=== PATIENT | male | born 1960 | race Caucasian/White ===

== ENCOUNTER 2017-10-11 06:30 | Day surgery (SDC) | payer OTHER ==
[~2017-10-11] VITALS: Ht 182.9 cm; Wt 111.4 kg
[~2017-10-11 06:30] MED LIST: ASPI81CH; ATOR40TA; METO25ER
== END 2017-10-11 13:30 | disposition home or self-care (01) ==
LOC: MHTC 06:30
PROC: B211YZZ Fluoroscopy of Multiple Coronary Arteries using Other Contrast (ICD-10-PCS; principal; 2017-10-11)
PROC: 4A023N7 Measurement of Cardiac Sampling and Pressure, Left Heart, Percutaneous Approach (ICD-10-PCS; principal; 2017-10-11)
DX: I34.0 Nonrheumatic mitral (valve) insufficiency (principal); I51.9 Heart disease, unspecified; R06.02 Shortness of breath; R93.1 Abnormal findings on diagnostic imaging of heart and coronary circulation; R94.31 Abnormal electrocardiogram [ECG] [EKG]; R53.83 Other fatigue; E78.5 Hyperlipidemia, unspecified
CPT/HCPCS: 93458; 99152; 99153; C1769; C1894; J0690; J1644; J2250; J3010; J7030; Q9967

== ENCOUNTER 2017-11-29 06:10 | Day surgery (SDC) | payer OTHER | END 2017-11-29 22:44 | disposition home or self-care (01) | LOC: MHTC 06:10 | PROC: B246ZZ4 Ultrasonography of Right and Left Heart, Transesophageal (ICD-10-PCS; principal; 2017-11-29) | DX: I34.0 Nonrheumatic mitral (valve) insufficiency (principal); I42.9 Cardiomyopathy, unspecified; I44.1 Atrioventricular block, second degree; R00.1 Bradycardia, unspecified; E78.5 Hyperlipidemia, unspecified | CPT/HCPCS: 93005; 93010; 93312; 93325; J2250; J7030 ==

== ENCOUNTER 2017-12-09 06:18 | Day surgery (SDC) | payer OTHER ==
[~2017-12-09] VITALS: Ht 185.4 cm; Wt 102.0 kg
[~2017-12-09 06:18] MED LIST changes: -ATOR40TA; +ATOR40TA PO; +TORSE20 PO
== END 2017-12-09 13:40 | disposition home or self-care (01) ==
LOC: MHTC 06:18
PROC: 02H63JZ Insertion of Pacemaker Lead into Right Atrium, Percutaneous Approach (ICD-10-PCS; principal; 2017-12-09)
PROC: 02HK3JZ Insertion of Pacemaker Lead into Right Ventricle, Percutaneous Approach (ICD-10-PCS; principal; 2017-12-09)
PROC: 0JH606Z Insertion of Pacemaker, Dual Chamber into Chest Subcutaneous Tissue and Fascia, Open Approach (ICD-10-PCS; principal; 2017-12-09)
DX: I44.1 Atrioventricular block, second degree (principal); R00.1 Bradycardia, unspecified; E78.5 Hyperlipidemia, unspecified; E66.01 Morbid (severe) obesity due to excess calories; I42.0 Dilated cardiomyopathy; I50.20 Unspecified systolic (congestive) heart failure; I34.0 Nonrheumatic mitral (valve) insufficiency; Z79.82 Long term (current) use of aspirin; Z79.899 Other long term (current) drug therapy; Z68.32 Body mass index [BMI] 32.0-32.9, adult
CPT/HCPCS: 33208; 71046; 93005; 93010; 99152; 99153; C1785; C1898; J0690; J1644; J2250; J3010; J7030; J7040

== ENCOUNTER 2018-12-05 11:11 | Inpatient (IN) | payer OTHER ==
[~2018-12-05] VITALS: Ht 188 cm; Wt 109.2 kg
[2018-12-05] MEDS ORDERED: Toprol Xl25 MG PO (11:46)
[2018-12-05] MEDS ORDERED: LOSA25 PO (11:46)
[2018-12-05] MEDS ORDERED: BUME2 PO ×2 (11:46→11:47)
[2018-12-05] MEDS ORDERED: LO-DOSE ASPIRIN81 MG PO (11:47)
[2018-12-05 12:06] LABS: BASOPHILS ABSOLUTE AUTO 0.05 K/mm3 (0.00-0.23); BASOPHILS PERCENT AUTO 0 % (0-2); EOSINOPHILS ABSOLUTE AUTO 0.02 K/mm3 (0.00-0.68); EOSINOPHILS PERCENT AUTO 0 % (0-6); Hematocrit 53.2 % (37.0-53.0); Hemoglobin 17.5 g/dL (13.5-17.5); IMMATURE GRAN ABSOLUTE AUTO 0.15 K/mm3 (0.00-0.10); IMMATURE GRAN PERCENT AUTO 1 % (0-1); LYMPHOCYTES ABSOLUTE AUTO 0.68 K/mm3 (0.84-5.20); LYMPHOCYTES PERCENT AUTO 3 % (21-46); MONOCYTES ABSOLUTE AUTO 1.58 K/mm3 (0.16-1.47); MONOCYTES PERCENT AUTO 8 % (4-13); Mean Corpuscular HGB 32.2 pg (26.0-34.0); Mean Corpuscular HGB Conc 32.9 g/dL (31.5-36.5); Mean Corpuscular Volume 98 fL (80-100); Mean Platelet Volume 10.1 fL (9.1-12.4); NEUTROPHILS ABSOLUTE AUTO 18.64 K/mm3 (1.96-9.15); NEUTROPHILS PERCENT AUTO 88 % (41-73); Platelet Count 208 K/mm3 (150-400); RDW Coefficient Variation 15.1 % (11.7-14.2); RDW Standard Deviation 53.7 fL (35.1-46.3); Red Blood Cell Count 5.44 M/mm3 (4.30-5.90); White Blood Cell Count 21.12 K/mm3 (4.00-11.30)
[2018-12-05 12:27] LABS: Albumin, Blood 3.9 g/dL (3.4-5.0); Albumin/Globulin Ratio 1.3 (0.8-1.8); Bilirubin, Total 4.7 mg/dL (0.1-1.0); Bun/Creatinine Ratio 20.6 (12.0-20.0); Calcium, Blood 9.1 mg/dL (8.5-10.1); Creatinine, Blood 1.55 mg/dL (0.60-1.20); Globulin, Blood 2.9 g/dL (2.2-4.0); Potassium, Blood 3.6 mmol/L (3.5-5.5); Total Protein, Blood 6.8 g/dL (6.4-8.2); Troponin I 0.037 ng/mL (0.000-0.040)
[2018-12-05] MEDS ORDERED: Potassium99 MG PO (13:57)
--- NOTE | 2018-12-05 16:32 | NUR ---
Echocardiogram completed.
--- NOTE | 2018-12-05 18:23 | NUR ---
PATIENT ADMITT THE PATIENT WAS ADMITTED TO ROOM #335 ON THE MEDICAL FLOOR FROM THE E/R, FOR HEART FAILURE. THE PATIENT WAS BROUGHT TO THE MEDICAL FLOOR VIA WHEELCHAIR AT 1722 THIS AFTERNOON. THE PATIENT'S SON WAS WITH THE PATIENT. THE PATIENT'S ADMISSION WAS COMPLETED AT THAT TIME. THE PATIENT WAS PLACED ON TELE. THE PATIENT IS RESTING AT THIS TIME, WILL CONTINUE TO MONITOR.
[2018-12-06 05:04] LABS: BASOPHILS ABSOLUTE AUTO 0.08 K/mm3 (0.00-0.23); BASOPHILS PERCENT AUTO 0 % (0-2); EOSINOPHILS ABSOLUTE AUTO 0.07 K/mm3 (0.00-0.68); EOSINOPHILS PERCENT AUTO 0 % (0-6); Hematocrit 52.3 % (37.0-53.0); Hemoglobin 17.2 g/dL (13.5-17.5); IMMATURE GRAN ABSOLUTE AUTO 0.15 K/mm3 (0.00-0.10); IMMATURE GRAN PERCENT AUTO 1 % (0-1); LYMPHOCYTES ABSOLUTE AUTO 1.98 K/mm3 (0.84-5.20); LYMPHOCYTES PERCENT AUTO 10 % (21-46); MONOCYTES ABSOLUTE AUTO 1.79 K/mm3 (0.16-1.47); MONOCYTES PERCENT AUTO 9 % (4-13); Mean Corpuscular HGB 32.1 pg (26.0-34.0); Mean Corpuscular HGB Conc 32.9 g/dL (31.5-36.5); Mean Corpuscular Volume 98 fL (80-100); Mean Platelet Volume 10.1 fL (9.1-12.4); NEUTROPHILS ABSOLUTE AUTO 16.16 K/mm3 (1.96-9.15); NEUTROPHILS PERCENT AUTO 80 % (41-73); Platelet Count 201 K/mm3 (150-400); RDW Coefficient Variation 15.2 % (11.7-14.2); RDW Standard Deviation 54.3 fL (35.1-46.3); Red Blood Cell Count 5.35 M/mm3 (4.30-5.90); White Blood Cell Count 20.23 K/mm3 (4.00-11.30)
[2018-12-06 05:28] LABS: Albumin, Blood 3.8 g/dL (3.4-5.0); Albumin/Globulin Ratio 1.3 (0.8-1.8); Bilirubin, Total 4.8 mg/dL (0.1-1.0); Bun/Creatinine Ratio 18.6 (12.0-20.0); Calcium, Blood 8.9 mg/dL (8.5-10.1); Creatinine, Blood 1.61 mg/dL (0.60-1.20); Globulin, Blood 2.9 g/dL (2.2-4.0); Magnesium, Blood 2.2 mg/dL (1.6-2.4); Potassium, Blood 3.9 mmol/L (3.5-5.5); Total Protein, Blood 6.7 g/dL (6.4-8.2)
--- NOTE | 2018-12-06 07:47 | NUR ---
12/06/18 0645 AWAKE AND SLEPT ON AND OFF. VITALS STABLE. COUGH SUPPRESSANT AND PAIN PILL HELPED WITH SYMPTOMS. DENIES ANY SOB AT THIS TIME.
--- NOTE | 2018-12-06 18:44 | NUR ---
SHIFT SUMMARY PATIENT A&O X4, INDEPENDENT IN THE ROOM. DENIES ANY PAIN OR NAUSEA. C/O SOB W/ EXTERTION T/O SHIFT. TOWARD END OF SHIFT PATIENT BEGAN HAVING AN INCREASE IN COUGH AND SOB AT REST. RN MEDICATED FOR COUGH PER E AUG, VITAL SIGNS REMAINED STABLE, OXYGEN @ 96% ON RA. SOB SEEMED TO IMPROVE SOME BUT PATIENT STATED HE REMAINED SOB FOR SOME TIME AFTER BEING UP TO USE THE BATHROOM. DR. NICOLAS AWARE. SIGNAL REPAIRER CONSULTED THIS SHIFT. NO OTHER ACUTE CHANGES THIS SHIFT. RN WILL CONTINUE TO MONITOR.
[2018-12-07 05:41] LABS: BASOPHILS ABSOLUTE AUTO 0.07 K/mm3 (0.00-0.23); BASOPHILS PERCENT AUTO 0 % (0-2); EOSINOPHILS ABSOLUTE AUTO 0.11 K/mm3 (0.00-0.68); EOSINOPHILS PERCENT AUTO 1 % (0-6); Hematocrit 51.3 % (37.0-53.0); Hemoglobin 17.1 g/dL (13.5-17.5); IMMATURE GRAN PERCENT AUTO 1 % (0-1); LYMPHOCYTES ABSOLUTE AUTO 2.44 K/mm3 (0.84-5.20); LYMPHOCYTES PERCENT AUTO 14 % (21-46); MONOCYTES ABSOLUTE AUTO 1.61 K/mm3 (0.16-1.47); MONOCYTES PERCENT AUTO 9 % (4-13); Mean Corpuscular HGB Conc 33.3 g/dL (31.5-36.5); Mean Corpuscular Volume 96 fL (80-100); Mean Platelet Volume 10.2 fL (9.1-12.4); NEUTROPHILS ABSOLUTE AUTO 12.99 K/mm3 (1.96-9.15); NEUTROPHILS PERCENT AUTO 75 % (41-73); Platelet Count 178 K/mm3 (150-400); RDW Coefficient Variation 15.3 % (11.7-14.2); RDW Standard Deviation 52.2 fL (35.1-46.3); Red Blood Cell Count 5.35 M/mm3 (4.30-5.90); White Blood Cell Count 17.32 K/mm3 (4.00-11.30)
[2018-12-07 06:06] LABS: Magnesium, Blood 2.4 mg/dL (1.6-2.4)
[2018-12-07 06:07] LABS: Albumin, Blood 3.5 g/dL (3.4-5.0); Albumin/Globulin Ratio 1.2 (0.8-1.8); Bilirubin, Total 5.1 mg/dL (0.1-1.0); Calcium, Blood 8.6 mg/dL (8.5-10.1); Creatinine, Blood 1.68 mg/dL (0.60-1.20); Globulin, Blood 2.8 g/dL (2.2-4.0); Potassium, Blood 3.6 mmol/L (3.5-5.5); Total Protein, Blood 6.3 g/dL (6.4-8.2)
--- NOTE | 2018-12-07 06:23 | NUR ---
SHIFT SUMMARY NO ACUTE EVENTS OVERNIGHT. PATIENT SLEPT THROUGHOUT THE NIGHT WITH NO S/S OF DISTRESS.
--- NOTE | 2018-12-07 13:48 | NUR ---
NOTIFIED BY ASSEMBLER FOR PULLER OVER MACHINE LORI THAT PCU SYSTEMS NAVIGATOR HAD NOTIFIED HER OF A CHANGE IN PATIENT TELE. THIS RN TO PATIENT ROOM, VITAL SIGNS STABLE. PATIENT ASYMPTOMATIC. DENIES ANY CHEST PAIN OR PRESSURE. RN PLACED CALL TO SYSTEMS NAVIGATOR, PATIENT ST LOW 100S W/ BBB AND PVCS. RN NOTIFIED DR BUSTILLO. WILL CONTINUE TO MONITOR.
--- NOTE | 2018-12-07 18:30 | NUR ---
SHIFT SUMMARY PATIENT A&O X4, INDEPENDENT IN THE ROOM. DENIES ANY PAIN THIS SHIFT. C/O SOB WHEN UP TO THE BATHROOM. TELE NSR W/ BBB @ 95 THIS AM PER ASIAN STUDIES PROFESSOR. TELE REMOVED FOR PATIENT TO TAKE SHOWER THIS SHIFT. SHORTLY AFTER PLACING THE PATIENT BACK ON TELE PCU DEVICE TEST ENGINEER CALLED TO SAY THAT PATIENT HAD A CHANGE IN HIS STRIP, PER ASIAN STUDIES PROFESSOR HE HAD A WIDENING BUNDLE BRANCH BLOCK. TECH WAS UNSURE IF THIS WAS DUE TO PLACEMENT OF TELE PATCHES OR NOT. RN ASSESSED PATIENT WHO DENIED ANY SOB OR CHEST PAIN, PATIENT WAS SITTING UP IN BED, VSS. RN CHANGED TELE PATCHES. CALL WAS PLACED TO DR. BUSTILLO. EKG DONE, REVIEWED BY DR. BUSTILLO. ABD US DONE THIS SHIFT. NO OTHER ACUTE CHANGES. RN WILL CONTINUE TO MONITOR.
[2018-12-08 04:06] LABS: HBSAG SCREEN Negative (Negative); HEP B CORE AB, TOT Negative (Negative); HEP C VIRUS AB <0.1 (0.0-0.9)
--- NOTE | 2018-12-08 05:11 | NUR ---
58 year old MAle with CHF and hx of pacemaker x 1 year says he isn't sure why pacemaker was placed but in followup with cardiology he may have AICD placed. He verbalized he has been unable to return to full duty work after cardiac issues began. 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 has been denied SSD but has appealed. He reports his ejection fx is down to 20 % from 35%. He is compliant with 1200 ml fluid restriction. On room air, he becomes sob with exertion. Cough med for dry hacking cough and restoril for insommia helful to get restful night sleep. NSR at 80 no pacer spikes seen.
[2018-12-08 05:56] LABS: Hematocrit 50.6 % (37.0-53.0); Hemoglobin 16.8 g/dL (13.5-17.5); Mean Corpuscular HGB 31.9 pg (26.0-34.0); Mean Corpuscular HGB Conc 33.2 g/dL (31.5-36.5); Mean Corpuscular Volume 96 fL (80-100); Mean Platelet Volume 10.3 fL (9.1-12.4); Platelet Count 163 K/mm3 (150-400); RDW Coefficient Variation 15.3 % (11.7-14.2); RDW Standard Deviation 52.9 fL (35.1-46.3); Red Blood Cell Count 5.26 M/mm3 (4.30-5.90); White Blood Cell Count 17.62 K/mm3 (4.00-11.30)
[2018-12-08 06:14] LABS: Magnesium, Blood 2.3 mg/dL (1.6-2.4)
[2018-12-08 06:15] LABS: Bun/Creatinine Ratio 23.2 (12.0-20.0); Calcium, Blood 9.1 mg/dL (8.5-10.1); Creatinine, Blood 1.94 mg/dL (0.60-1.20); Potassium, Blood 3.4 mmol/L (3.5-5.5)
[2018-12-08 07:49] LABS: Albumin, Blood 3.5 g/dL (3.4-5.0); Albumin/Globulin Ratio 1.3 (0.8-1.8); Bilirubin, Total 6.2 mg/dL (0.1-1.0); Bun/Creatinine Ratio 23.4 (12.0-20.0); Calcium, Blood 8.8 mg/dL (8.5-10.1); Creatinine, Blood 1.97 mg/dL (0.60-1.20); Globulin, Blood 2.7 g/dL (2.2-4.0); Potassium, Blood 3.5 mmol/L (3.5-5.5); Total Protein, Blood 6.2 g/dL (6.4-8.2)
--- NOTE | 2018-12-08 17:38 | NUR ---
SHIFT SUMMARY THE PATIENT PRESENTED THIS SHIFT WITH CLEAR, BUT DIMINISHED LUNG SOUNDDS, A&O X4 AND WITH VITALS THAT WERE WNL. THE PATIEN HAD TWO CRITICAL LAB VALUES CALLED BACK BHARAT SHIFT, BOTH WERE LACTIC ACID, AT 1025, VALUE OF 3.0 AND AT 1350 A VALUE OF 2.6. THE PATIENT'S DOCTOR WAS CALLED FOR BOTH RESULTS. THE PATIENT HAS BEEN INDEPENDENT IN HIS ROOM, WITH FAMILY AND FREINDS VISITING. THE PATIENT IS RESTING AT THIS TIME, WILL CONTINUE TO MONITOR.
--- NOTE | 2018-12-09 04:56 | NUR ---
PT CONTINUES ON TELE MONITORING WITH NSR AND 1ST DEGREE AND BBB. HE DECLINES RESPTORIL AND APPERS TO BE RESTING ANYWAY ON ROUNDS. CONTINUES ON 1200 ML FLUID RESTRICTION, COMPLIANT. HAD WORSENING LAB VAlues with elevated biliruben lactic acid alt ast. Abd US negative. poor appetite zero dinner taken . did take replacement shake with encouragement.
[2018-12-09 05:47] LABS: Hematocrit 52.9 % (37.0-53.0); Hemoglobin 17.5 g/dL (13.5-17.5); Mean Corpuscular HGB Conc 33.1 g/dL (31.5-36.5); Mean Corpuscular Volume 97 fL (80-100); Mean Platelet Volume 10.7 fL (9.1-12.4); Platelet Count 149 K/mm3 (150-400); RDW Coefficient Variation 15.2 % (11.7-14.2); RDW Standard Deviation 52.9 fL (35.1-46.3); Red Blood Cell Count 5.47 M/mm3 (4.30-5.90); White Blood Cell Count 11.04 K/mm3 (4.00-11.30)
[2018-12-09 06:14] LABS: Albumin, Blood 3.6 g/dL (3.4-5.0); Albumin/Globulin Ratio 1.6 (0.8-1.8); Bilirubin, Total 4.4 mg/dL (0.1-1.0); Bun/Creatinine Ratio 32.6 (12.0-20.0); Calcium, Blood 8.8 mg/dL (8.5-10.1); Creatinine, Blood 1.35 mg/dL (0.60-1.20); Globulin, Blood 2.3 g/dL (2.2-4.0); Total Protein, Blood 5.9 g/dL (6.4-8.2)
--- NOTE | 2018-12-09 09:38 | NUR ---
WRONG MEDICATION THE PATIENT'S NAME WAS USED TO PULL CHEM STRIPS FOR B/G AND THE SOLUMEDROL MEDICATION AREA MUST OF BEEN TOUCHED. NO SOLUMEDROL WAS TAKEN OUT OF THE PIXIS. CHARGE NURSE SUMMER WAS THERE DURING THE TIME.
[2018-12-09 11:51] LABS: Antinuclear Antibody Screen Negative (Negative)
--- NOTE | 2018-12-09 17:37 | NUR ---
SHIFT SUMMARY THE PATIENT PRESENT THIS SHIFT WITH VITALS WNL, A&O X4 AND WITH CLEAR BUT DIMINISHED LUNG SOUNDS. THE PATIENT HAD A CONSULT WITH DR. MILES FOR GI ISSUES. THE PATIENT CONTINUES TO GET ALBUMIN AND HIS LABS ARE IMPROVING. THE PATIENT HAD FAMILY IN TO VISIT THIS SHIFT. THE PATIENT IS RESTING AT THIS TIME, WILL CONTINUE TO MONITOR.
--- NOTE | 2018-12-10 05:22 | NUR ---
SHIFT SUMMARY PATIENT IS ALERT AND ORIENTED. PATIENT IS UP INDEPENDENT IN ROOM. DID COMPLAIN OF A DRY COUGH. MEDICATED ORDERED. PATIENT IS ON A 1200 FLUID RESTRICTION. PATIENT IS ON TELE, RHYTHM WAS SR, BBB, PVC'S PER COMMERCIAL PORTFOLIO MANAGER. PATIENT SLEPT WELL THROUGHOUT THE NIGHT. NO NEW CHANGES NOTED. VITALS STABLE.
[2018-12-10 06:22] LABS: Alanine Aminotransfer (ALT/SGP 1281 U/L (12-78); Albumin, Blood 3.7 g/dL (3.4-5.0); Albumin/Globulin Ratio 1.6 (0.8-1.8); Alk Phos 96 U/L (50-136); Anion Gap 8 mmol/L (6-16); Aspartate Aminotrans (AST/SGOT 435 U/L (12-37); Bilirubin, Total 4.4 mg/dL (0.1-1.0); Blood Urea Nitrogen 33 mg/dL (8-24); Bun/Creatinine Ratio 25.8 (12.0-20.0); CO2, Blood 29 mmol/L (21-32); Calcium, Blood 8.5 mg/dL (8.5-10.1); Chloride, Blood 99 mmol/L (98-108); Creatinine, Blood 1.28 mg/dL (0.60-1.20); Globulin, Blood 2.3 g/dL (2.2-4.0); Glomerular Filtration Rate >60 (60-); Glucose, Blood 86 mg/dL (70-99); Potassium, Blood 3.2 mmol/L (3.5-5.5); Sodium, Blood 136 mmol/L (136-145)
[2018-12-10 12:20] LABS: Source, Urine Clean Catch
[2018-12-10 12:24] LABS: Blood, Urine 5+ (Neg); Glucose Qualitative, Urine Neg (Neg); Ketones, Urine 1+ (Neg); Leukocyte Esterase, Urine 3+ (Neg); Nitrite, Urine Pos (Neg); Protein, Urine 4+ (Neg); Urobilinogen, Urine 1+ (Normal)
[2018-12-10 12:32] LABS: Appearance, Urine Cloudy (Clear); Bilirubin, Urine 1+ (Neg); Color, Urine Amber (P-Yellow)
[2018-12-10 12:33] LABS: Bacteria Many /hpf; Red Blood Cells, Urine TNTC /hpf (0-2); Squamous Epithelial Cells Few /hpf (Few)
[2018-12-10 12:34] LABS: Mucus Light (0-Heavy)
[2018-12-10] MEDS ORDERED: SPIR25 PO (13:07)
[2018-12-10] MEDS ORDERED: TORSE20 PO (13:07)
[2018-12-10] MEDS ORDERED: ENTRESTO 24 MG1 EACH PO (13:07)
[2018-12-10] MEDS ORDERED: LEVFLO500 PO (13:08)
--- NOTE | 2018-12-10 14:42 | NUR ---
PATIENT DISCHARGE THE PATIENT WAS DISCHARGED HOME WITH HIS FAMILY, AFTER DISCHARGE INSTRUCTIONS WERE GIVEN TO THE PATIENT. THE PATIENT STATED THAT HE UNDERSTOOD HIS INSTRUCTIONS. THE PATIENT LEFT THE HOSPITAL WITHOUT CONCERN OR COMPLAINT.
[2018-12-10] MEDS ORDERED: LISI5 PO (15:39)
[2018-12-11 17:05] LABS: HBV IU/ML HBV DNA not detected IU/mL (.)
[2018-12-16 13:07] LABS: CMV QUANT DNA PCR (PLASMA) Negative (Negative)
== END 2018-12-10 15:29 | disposition home or self-care (01) | DRG 291 ==
LOC: ER 11:11 → MEDS 11:12 → ERHOLD 11:12 → MEDS 17:19 → ENPENDDIS 12-10 13:34 → MEDS 12-10 15:29
PROVIDERS: Emergency Medicine; Internal Medicine; Internal Medicine Gastroenterology; Internal Medicine Interventional Cardiology; ADMIT Internal Medicine
DX: I13.0 Hypertensive heart and chronic kidney disease with heart failure and stage 1 through stage 4 chronic kidney disease, or unspecified chronic kidney disease (principal); I50.43 Acute on chronic combined systolic (congestive) and diastolic (congestive) heart failure; K72.00 Acute and subacute hepatic failure without coma; N17.9 Acute kidney failure, unspecified; E87.2 Acidosis; E87.1 Hypo-osmolality and hyponatremia; E11.22 Type 2 diabetes mellitus with diabetic chronic kidney disease; E87.6 Hypokalemia; I34.0 Nonrheumatic mitral (valve) insufficiency; I99.8 Other disorder of circulatory system; N18.3 Chronic kidney disease, stage 3 (moderate); Z95.0 Presence of cardiac pacemaker; I27.20 Pulmonary hypertension, unspecified; D72.829 Elevated white blood cell count, unspecified
CPT/HCPCS: 36415; 71046; 76705; 80048; 80053; 81001; 82390; 83516; 83605; 83690; 83735; 83880; 84484; 85025; 85027; 86038; 86704; 86708; 86803; 87340; 87497; 87517; 87798; 93005; 93010; 93308; 96372; 96374; 96376; 99285-25; A9270; G0378; G0480; J1644; J1940; J2930; J7050; P9041

== ENCOUNTER 2019-01-01 11:21 | Emergency (ER) | payer OTHER ==
[~2019-01-01] VITALS: Ht 188 cm; Wt 109.8 kg
[~2019-01-01 11:21] MED LIST changes: +BUME2 PO; +ENTRESTO 24 MG1 EACH PO; +LEVFLO500 PO; +LISI5 PO; +LO-DOSE ASPIRIN81 MG PO; +LOSA25 PO; +Potassium99 MG PO; +SPIR25 PO; +Toprol Xl25 MG PO
[2019-01-01 13:08] LABS: BASOPHILS ABSOLUTE AUTO 0.06 K/mm3 (0.00-0.23); BASOPHILS PERCENT AUTO 1 % (0-2); EOSINOPHILS ABSOLUTE AUTO 0.11 K/mm3 (0.00-0.68); EOSINOPHILS PERCENT AUTO 1 % (0-6); Hematocrit 53.9 % (37.0-53.0); Hemoglobin 17.8 g/dL (13.5-17.5); IMMATURE GRAN ABSOLUTE AUTO 0.05 K/mm3 (0.00-0.10); IMMATURE GRAN PERCENT AUTO 1 % (0-1); LYMPHOCYTES ABSOLUTE AUTO 1.35 K/mm3 (0.84-5.20); LYMPHOCYTES PERCENT AUTO 15 % (21-46); MONOCYTES ABSOLUTE AUTO 1.24 K/mm3 (0.16-1.47); MONOCYTES PERCENT AUTO 13 % (4-13); Mean Corpuscular HGB 30.8 pg (26.0-34.0); Mean Corpuscular Volume 93 fL (80-100); Mean Platelet Volume 10.3 fL (9.1-12.4); NEUTROPHILS ABSOLUTE AUTO 6.46 K/mm3 (1.96-9.15); NEUTROPHILS PERCENT AUTO 70 % (41-73); Platelet Count 182 K/mm3 (150-400); RDW Coefficient Variation 15.8 % (11.7-14.2); RDW Standard Deviation 52.3 fL (35.1-46.3); Red Blood Cell Count 5.77 M/mm3 (4.30-5.90); White Blood Cell Count 9.27 K/mm3 (4.00-11.30)
[2019-01-01 14:45] LABS: Albumin, Blood 3.5 g/dL (3.4-5.0); Albumin/Globulin Ratio 1.1 (0.8-1.8); Bilirubin, Total 2.6 mg/dL (0.1-1.0); Bun/Creatinine Ratio 22.5 (12.0-20.0); Calcium, Blood 8.1 mg/dL (8.5-10.1); Creatinine, Blood 1.38 mg/dL (0.60-1.20); Globulin, Blood 3.3 g/dL (2.2-4.0); Potassium, Blood 4.8 mmol/L (3.5-5.5); Total Protein, Blood 6.8 g/dL (6.4-8.2)
== END 2019-01-01 15:45 | disposition home or self-care (01) ==
LOC: ER 11:21
PROVIDERS: Emergency Medicine
DX: I50.9 Heart failure, unspecified (principal); Z79.899 Other long term (current) drug therapy; Z79.82 Long term (current) use of aspirin
CPT/HCPCS: 36415; 71046; 80053; 83690; 83880; 85025; 93005; 93010; 96374; 99284-25

== ENCOUNTER → 2020-12-27 | Outpatient (CLI) | payer MEDICARE, OTHER | END | disposition home or self-care (01) | LOC: LAB 16:16 → LAB SHORT 16:16 | DX: U07.1 COVID-19 (principal) | CPT/HCPCS: U0003 ==

== ENCOUNTER 2022-01-20 18:56 | Emergency (ER) | payer MEDICARE, OTHER ==
[~2022-01-20] VITALS: Ht 188 cm; Wt 113.4 kg
== END 2022-01-20 21:31 | disposition home or self-care (01) ==
LOC: ER 18:56
DX: R55 Syncope and collapse (principal); M54.6 Pain in thoracic spine; R79.89 Other specified abnormal findings of blood chemistry; I50.9 Heart failure, unspecified; Z95.0 Presence of cardiac pacemaker; Z79.82 Long term (current) use of aspirin; Z79.899 Other long term (current) drug therapy
CPT/HCPCS: 36415; 71260; 84484; 99284-25; Q9967

== ENCOUNTER → 2022-01-20 | Outpatient (CLI) | payer MEDICARE, OTHER ==
[2022-01-20 17:46] LABS: BASOPHILS ABSOLUTE AUTO 0.04 K/mm3 (0.00-0.23); BASOPHILS PERCENT AUTO 1 % (0-2); EOSINOPHILS ABSOLUTE AUTO 0.21 K/mm3 (0.00-0.68); EOSINOPHILS PERCENT AUTO 3 % (0-6); Hematocrit 50.1 % (37.0-53.0); Hemoglobin 17.6 g/dL (13.5-17.5); IMMATURE GRAN ABSOLUTE AUTO 0.07 K/mm3 (0.00-0.10); IMMATURE GRAN PERCENT AUTO 1 % (0-1); LYMPHOCYTES ABSOLUTE AUTO 1.23 K/mm3 (0.84-5.20); LYMPHOCYTES PERCENT AUTO 15 % (21-46); MONOCYTES ABSOLUTE AUTO 1.47 K/mm3 (0.16-1.47); MONOCYTES PERCENT AUTO 17 % (4-13); Mean Corpuscular HGB 31.4 pg (26.0-34.0); Mean Corpuscular HGB Conc 35.1 g/dL (31.5-36.5); Mean Corpuscular Volume 90 fL (80-100); NEUTROPHILS ABSOLUTE AUTO 5.41 K/mm3 (1.96-9.15); NEUTROPHILS PERCENT AUTO 64 % (41-73); RDW Coefficient Variation 12.8 % (11.7-14.2); RDW Standard Deviation 42.3 fL (35.1-46.3); White Blood Cell Count 8.43 K/mm3 (4.00-11.30)
[2022-01-20 17:54] LABS: Albumin, Blood 4.3 g/dL (3.4-5.0); Albumin/Globulin Ratio 1.1 (0.8-1.8); Bilirubin, Total 2.3 mg/dL (0.1-1.0); Bun/Creatinine Ratio 10.1 (12.0-20.0); Calcium, Blood 8.1 mg/dL (8.5-10.1); Creatinine, Blood 1.78 mg/dL (0.60-1.20); Potassium, Blood 3.6 mmol/L (3.5-5.5); Total Protein, Blood 8.3 g/dL (6.4-8.2)
[2022-01-20 17:55] LABS: Mean Platelet Volume 10.6 fL (9.1-12.4); Platelet Count 135 K/mm3 (150-400)
== END | disposition home or self-care (01) ==
LOC: LAB SHORT 17:37
PROVIDERS: Physician Assistant
DX: R10.9 Unspecified abdominal pain (principal); R55 Syncope and collapse
CPT/HCPCS: 80053; 83690; 84484; 85025; 85379

== ENCOUNTER → 2022-01-26 | Outpatient (CLI) | payer MEDICARE, OTHER ==
[2022-01-26 12:31] LABS: Hematocrit 44.1 % (37.0-53.0); Mean Corpuscular HGB 31.2 pg (26.0-34.0); Mean Corpuscular HGB Conc 36.3 g/dL (31.5-36.5); Mean Corpuscular Volume 86 fL (80-100); RDW Coefficient Variation 12.5 % (11.7-14.2); RDW Standard Deviation 39.5 fL (35.1-46.3); Red Blood Cell Count 5.13 M/mm3 (4.30-5.90); White Blood Cell Count 7.99 K/mm3 (4.00-11.30)
[2022-01-26 12:45] LABS: Albumin, Blood 3.3 g/dL (3.4-5.0); Albumin/Globulin Ratio 0.9 (0.8-1.8); Bilirubin, Total 1.7 mg/dL (0.1-1.0); Calcium, Blood 7.9 mg/dL (8.5-10.1); Creatinine, Blood 1.84 mg/dL (0.60-1.20); Globulin, Blood 3.8 g/dL (2.2-4.0); Total Protein, Blood 7.1 g/dL (6.4-8.2)
[2022-01-26 12:55] LABS: Mean Platelet Volume 11.2 fL (9.1-12.4); Platelet Count 139 K/mm3 (150-400)
[2022-01-26 13:00] LABS: BAND PERCENT MAN 23 % (0-8); BASOPHILS PERCENT MAN 0 % (0-2); EOSINOPHILS ABSOLUTE MAN 0.07 K/mm3 (0.00-0.68); EOSINOPHILS PERCENT MAN 1 % (0-6); LYMPHOCYTES % ATYPICAL MANUAL 18 % (0-0); LYMPHOCYTES ABSOLUTE MAN 2.07 K/mm3 (0.84-5.20); LYMPHOCYTES PERCENT MAN 8 % (21-46); MONOCYTES ABSOLUTE MAN 0.15 K/mm3 (0.16-1.47); MONOCYTES PERCENT MAN 2 % (4-13); NEUTROPHILS ABSOLUTE MAN 5.67 K/mm3 (1.96-9.15); SEG NEUTROPHILS PERCENT MAN 48 % (41-73); TOTAL CELLS COUNTED 100
== END | disposition home or self-care (01) ==
LOC: LAB SHORT 12:27 → LAB 12:27
PROVIDERS: Physician Assistant
DX: E87.1 Hypo-osmolality and hyponatremia (principal); R53.83 Other fatigue
CPT/HCPCS: 80053; 83880; 85025

== ENCOUNTER 2022-12-07 08:06 | Emergency (ER) | payer MEDICARE, OTHER ==
[~2022-12-07] VITALS: Ht 188 cm; Wt 108.9 kg
[2022-12-07 09:28] LABS: BASOPHILS ABSOLUTE AUTO 0.04 K/mm3 (0.00-0.23); BASOPHILS PERCENT AUTO 1 % (0-2); EOSINOPHILS PERCENT AUTO 2 % (0-6); Hematocrit 48.4 % (37.0-53.0); Hemoglobin 16.7 g/dL (13.5-17.5); IMMATURE GRAN ABSOLUTE AUTO 0.04 K/mm3 (0.00-0.10); IMMATURE GRAN PERCENT AUTO 1 % (0-1); LYMPHOCYTES ABSOLUTE AUTO 1.25 K/mm3 (0.84-5.20); LYMPHOCYTES PERCENT AUTO 15 % (21-46); MONOCYTES ABSOLUTE AUTO 0.73 K/mm3 (0.16-1.47); MONOCYTES PERCENT AUTO 9 % (4-13); Mean Corpuscular HGB 30.7 pg (26.0-34.0); Mean Corpuscular HGB Conc 34.5 g/dL (31.5-36.5); Mean Corpuscular Volume 89 fL (80-100); Mean Platelet Volume 9.7 fL (9.1-12.4); NEUTROPHILS ABSOLUTE AUTO 6.29 K/mm3 (1.96-9.15); NEUTROPHILS PERCENT AUTO 74 % (41-73); Platelet Count 189 K/mm3 (150-400); RDW Coefficient Variation 13.1 % (11.7-14.2); Red Blood Cell Count 5.44 M/mm3 (4.30-5.90); White Blood Cell Count 8.55 K/mm3 (4.00-11.30)
[2022-12-07 09:47] LABS: Albumin, Blood 3.8 g/dL (3.4-5.0); Albumin/Globulin Ratio 1.2 (0.8-1.8); Bilirubin, Total 2.3 mg/dL (0.1-1.0); Bun/Creatinine Ratio 15.8 (12.0-20.0); Creatinine, Blood 1.14 mg/dL (0.60-1.20); Globulin, Blood 3.1 g/dL (2.2-4.0); Potassium, Blood 4.2 mmol/L (3.5-5.5); Total Protein, Blood 6.9 g/dL (6.4-8.2)
[2022-12-07 10:00] VITALS: BP 117/74
[2022-12-07] MEDS ORDERED: Lasix20 MG PO (10:42)
== END 2022-12-07 10:56 | disposition home or self-care (01) ==
LOC: ER 08:06
PROVIDERS: Physician Assistant
DX: I50.9 Heart failure, unspecified (principal); Z79.899 Other long term (current) drug therapy; Z79.82 Long term (current) use of aspirin
CPT/HCPCS: 71046; 80053; 83880; 85025; 93005; 93010; 99285-25

== ENCOUNTER 2023-07-08 13:08 | Emergency (ER) | payer MEDICARE, OTHER ==
[~2023-07-08] VITALS: Ht 188 cm; Wt 102.1 kg
[~2023-07-08 13:08] MED LIST changes: +Lasix20 MG PO
[2023-07-08 14:05] LABS: BASOPHILS ABSOLUTE AUTO 0.04 K/mm3 (0.00-0.23); BASOPHILS PERCENT AUTO 1 % (0-2); EOSINOPHILS PERCENT AUTO 2 % (0-6); Hematocrit 50.6 % (37.0-53.0); Hemoglobin 17.3 g/dL (13.5-17.5); IMMATURE GRAN ABSOLUTE AUTO 0.08 K/mm3 (0.00-0.10); IMMATURE GRAN PERCENT AUTO 1 % (0-1); LYMPHOCYTES ABSOLUTE AUTO 1.51 K/mm3 (0.84-5.20); LYMPHOCYTES PERCENT AUTO 17 % (21-46); MONOCYTES ABSOLUTE AUTO 0.72 K/mm3 (0.16-1.47); MONOCYTES PERCENT AUTO 8 % (4-13); Mean Corpuscular HGB 30.7 pg (26.0-34.0); Mean Corpuscular HGB Conc 34.2 g/dL (31.5-36.5); Mean Corpuscular Volume 90 fL (80-100); NEUTROPHILS PERCENT AUTO 71 % (41-73); Platelet Count 231 K/mm3 (150-400); RDW Coefficient Variation 13.3 % (11.7-14.2); RDW Standard Deviation 43.5 fL (35.1-46.3); Red Blood Cell Count 5.63 M/mm3 (4.30-5.90); White Blood Cell Count 8.85 K/mm3 (4.00-11.30)
[2023-07-08 14:08] LABS: Influenza A, PCR NEGATIVE (NEGATIVE); Influenza B, PCR NEGATIVE (NEGATIVE); Resp Syncytial Virus, PCR NEGATIVE (NEGATIVE)
[2023-07-08 14:33] LABS: Albumin, Blood 3.8 g/dL (3.4-5.0); Bilirubin, Total 1.5 mg/dL (0.1-1.0); Bun/Creatinine Ratio 16.9 (12.0-20.0); Calcium, Blood 8.8 mg/dL (8.5-10.1); Creatinine, Blood 1.3 mg/dL (0.60-1.20); Globulin, Blood 3.8 g/dL (2.2-4.0); Total Protein, Blood 7.6 g/dL (6.4-8.2)
[2023-07-08 14:38] LABS: SARS-Cov-2 (COVID-19) PCR, MMC POSITIVE (NEGATIVE)
[2023-07-08 15:15] VITALS: BP 118/104
[2023-07-08] MEDS ORDERED: BENZ100A PO (15:29)
[2023-07-08] MEDS ORDERED: Benzonatate 100 MG Cap PO ONE (15:30)
== END 2023-07-08 15:43 | disposition home or self-care (01) ==
LOC: ER 13:08
PROVIDERS: Student in an Organized Health Care Education/Training Program
DX: U07.1 COVID-19 (principal); J20.8 Acute bronchitis due to other specified organisms; I50.9 Heart failure, unspecified; Z79.82 Long term (current) use of aspirin; Z79.899 Other long term (current) drug therapy; Z95.0 Presence of cardiac pacemaker
CPT/HCPCS: 0241U; 71046; 80053; 83880; 85025; 93005; 93010; 99285-25; A9270

== ENCOUNTER 2023-10-02 13:59 | Emergency (ER) | payer MEDICARE, OTHER ==
[~2023-10-02] VITALS: Ht 188 cm; Wt 111.1 kg
[~2023-10-02 13:59] MED LIST changes: +BENZ100A PO
[2023-10-02 14:13] VITALS: BP 126/83
[2023-10-02 15:46] LABS: Source, Urine Clean Catch
[2023-10-02 15:48] LABS: BASOPHILS ABSOLUTE AUTO 0.06 K/mm3 (0.00-0.23); BASOPHILS PERCENT AUTO 1 % (0-2); EOSINOPHILS ABSOLUTE AUTO 0.32 K/mm3 (0.00-0.68); EOSINOPHILS PERCENT AUTO 3 % (0-6); Hematocrit 51.6 % (37.0-53.0); Hemoglobin 17.5 g/dL (13.5-17.5); IMMATURE GRAN ABSOLUTE AUTO 0.05 K/mm3 (0.00-0.10); IMMATURE GRAN PERCENT AUTO 1 % (0-1); LYMPHOCYTES ABSOLUTE AUTO 1.66 K/mm3 (0.84-5.20); LYMPHOCYTES PERCENT AUTO 15 % (21-46); MONOCYTES ABSOLUTE AUTO 1.38 K/mm3 (0.16-1.47); MONOCYTES PERCENT AUTO 13 % (4-13); Mean Corpuscular HGB 30.8 pg (26.0-34.0); Mean Corpuscular HGB Conc 33.9 g/dL (31.5-36.5); Mean Corpuscular Volume 91 fL (80-100); Mean Platelet Volume 9.3 fL (9.1-12.4); NEUTROPHILS ABSOLUTE AUTO 7.46 K/mm3 (1.96-9.15); NEUTROPHILS PERCENT AUTO 68 % (41-73); Platelet Count 175 K/mm3 (150-400); RDW Coefficient Variation 12.7 % (11.7-14.2); RDW Standard Deviation 42.5 fL (35.1-46.3); Red Blood Cell Count 5.68 M/mm3 (4.30-5.90); White Blood Cell Count 10.93 K/mm3 (4.00-11.30)
[2023-10-02 16:00] LABS: Appearance, Urine Clear (Clear); Bilirubin, Urine Neg (Neg); Blood, Urine 1+ (Neg); Color, Urine Yellow (P-Yellow); Glucose Qualitative, Urine Neg (Neg); Ketones, Urine Neg (Neg); Leukocyte Esterase, Urine 1+ (Neg); Nitrite, Urine Neg (Neg); Protein, Urine Neg (Neg); Urobilinogen, Urine NORM (Normal)
[2023-10-02 16:03] LABS: Albumin/Globulin Ratio 1.1 (0.8-1.8); Bun/Creatinine Ratio 13.7 (12.0-20.0); Calcium, Blood 8.8 mg/dL (8.5-10.1); Creatinine, Blood 1.46 mg/dL (0.60-1.20); Globulin, Blood 3.6 g/dL (2.2-4.0); Potassium, Blood 4.7 mmol/L (3.5-5.5); Total Protein, Blood 7.6 g/dL (6.4-8.2)
[2023-10-02 16:07] LABS: Bacteria Many /hpf; Red Blood Cells, Urine 0-2 /hpf (0-2); Squamous Epithelial Cells Rare /hpf (Few)
== END 2023-10-02 17:33 | disposition home or self-care (01) ==
LOC: ER 13:59
PROVIDERS: Nurse Practitioner
DX: I82.811 Embolism and thrombosis of superficial veins of right lower extremity (principal); R59.0 Localized enlarged lymph nodes; Z79.899 Other long term (current) drug therapy; Z79.82 Long term (current) use of aspirin; I50.9 Heart failure, unspecified
CPT/HCPCS: 74177; 80053; 81001; 85025; 87086; 93971; 99283-25; Q9967

== ENCOUNTER 2024-12-16 15:28 | Emergency (ER) | payer OTHER ==
[~2024-12-16] VITALS: Ht 188 cm; Wt 108.9 kg
[2024-12-16 16:08] LABS: BASOPHILS ABSOLUTE AUTO 0.05 K/mm3 (0.00-0.23); BASOPHILS PERCENT AUTO 0 % (0-2); EOSINOPHILS ABSOLUTE AUTO 0.22 K/mm3 (0.00-0.68); EOSINOPHILS PERCENT AUTO 2 % (0-6); Hematocrit 52.1 % (37.0-53.0); Hemoglobin 17.7 g/dL (13.5-17.5); IMMATURE GRAN ABSOLUTE AUTO 0.09 K/mm3 (0.00-0.10); IMMATURE GRAN PERCENT AUTO 1 % (0-1); LYMPHOCYTES ABSOLUTE AUTO 2.48 K/mm3 (0.84-5.20); LYMPHOCYTES PERCENT AUTO 17 % (21-46); MONOCYTES ABSOLUTE AUTO 1.36 K/mm3 (0.16-1.47); MONOCYTES PERCENT AUTO 9 % (4-13); Mean Corpuscular HGB Conc 34.0 g/dL (31.5-36.5); Mean Corpuscular Volume 91 fL (80-100); NEUTROPHILS ABSOLUTE AUTO 10.78 K/mm3 (1.96-9.15); NEUTROPHILS PERCENT AUTO 72 % (41-73); NRBC ABSOLUTE 0.00 K/mm3 (0.00-0.02); NRBC Auto 0.0 /100 WBC (0.0-0.2); Platelet Count 295 K/mm3 (150-400); RDW Coefficient Variation 12.7 % (11.7-14.2); RDW Standard Deviation 42.8 fL (35.1-46.3)
[2024-12-16 16:21] LABS: Alanine Aminotransfer (ALT/SGP 27.0 U/L (12-78); Albumin, Blood 3.9 g/dL (3.4-5.0); Albumin/Globulin Ratio 0.9 (0.8-1.8); Anion Gap 8.0 mmol/L (3-11); Aspartate Aminotrans (AST/SGOT 28.0 U/L (12-37); Bilirubin, Total 1.5 mg/dL (0.1-1.0); Blood Urea Nitrogen 14.0 mg/dL (8-24); CO2, Blood 25.0 mmol/L (21-32); Calcium, Blood 8.7 mg/dL (8.5-10.1); Chloride, Blood 103.0 mmol/L (98-108); Creatinine, Blood 1.45 mg/dL (0.60-1.20); Globulin, Blood 4.3 g/dL (2.2-4.0); Glucose, Blood 120.0 mg/dL (70-99); Potassium, Blood 4.1 mmol/L (3.5-5.5); Sodium, Blood 132.0 mmol/L (136-145); Total Protein, Blood 8.2 g/dL (6.4-8.2)
[2024-12-16] MEDS ORDERED: Ketorolac Tromethamine 15mg Vial IV ONE (16:30)
[2024-12-16] MEDS ORDERED: Lidocaine 4% 1 Patch TOP ONE (16:30)
[2024-12-16] MEDS ORDERED: OxyCODONE 5 mg/Acetamin 325 mg TABLET PO ONE (16:30)
[2024-12-16] MEDS ORDERED: AMOCLA875 PO (18:55)
[2024-12-16] MEDS ORDERED: AZIT250 PO (18:55)
[2024-12-16 19:00] VITALS: BP 133/81
[2024-12-16] MEDS ORDERED: RX Prepack 6 Tabs Oxycodone 5mg UD ONE (19:10)
== END 2024-12-16 19:15 | disposition home or self-care (01) ==
LOC: ER 15:28
PROVIDERS: Student in an Organized Health Care Education/Training Program
DX: J18.9 Pneumonia, unspecified organism (principal)
CPT/HCPCS: 71046; 80053; 83690; 83880; 84484; 85025; 93005; 93010; 96374; 99285-25; A9270; J1885